=== PATIENT | male | born 1960 | race Caucasian/White ===

== ENCOUNTER → 2020-05-09 | Day surgery (SDC) | payer BC ==
[~2020-05-09] MED LIST: ANDROGEL1.25 GM TD; ATORVASTATIN CA40 MG PO; CLARITIN10 M2 PO; CYMBALTA30 MG PO; CYMBALTA60 MG PO; FORTESTA60 GM TOP; GLUCOPHAGE 500500 MG PO; GLUCOPHAGE XR500 MG PO; LISINOPRIL-HCT1 EAC2 PO; OXYCONTIN 40 MG40 MG PO; OXYCONTIN15 MG PO; PERCOCET 10-321 EACH PO; PREVACID30 MG PO; VALIUM5 MG PO; XANAX1 MG PO; XARELTO10 MG PO
[2020-05-09 11:29] LABS: BUN/CREATININE RATIO 12 (0-10)
[2020-05-09 11:45] LABS: HEMOGLOBIN 18.1 gm/dl (14.0-17.5); RED BLOOD COUNT 6.62 M/UL (4.20-5.50)
== END | disposition home or self-care (01) ==
LOC: OR 09:57
PROVIDERS: Anesthesiology Pain Medicine
DX: Z45.1 Encounter for adjustment and management of infusion pump (principal); G89.29 Other chronic pain; M54.5 Low back pain; I10 Essential (primary) hypertension; M15.0 Primary generalized (osteo)arthritis; K21.9 Gastro-esophageal reflux disease without esophagitis; F32.9 Major depressive disorder, single episode, unspecified; E11.9 Type 2 diabetes mellitus without complications; F41.9 Anxiety disorder, unspecified; F17.200 Nicotine dependence, unspecified, uncomplicated; Z98.1 Arthrodesis status; Z88.8 Allergy status to other drugs, medicaments and biological substances; Z79.899 Other long term (current) drug therapy
CPT/HCPCS: 71045; 74019; 76000; 80048; 85025; 93005; C1772; J0690; J1100; J1170; J1200; J2250; J2405; J2704; J3010; J7030; J7120

== ENCOUNTER → 2022-01-07 | Outpatient (CLI) | payer BC ==
[2022-01-07 15:09] LABS: HEMOGLOBIN 15.9 gm/dl (14.0-17.5); RED BLOOD COUNT 5.44 M/UL (4.20-5.50); WHITE BLOOD COUNT 6.6 K/UL (4.5-11.0)
[2022-01-07 15:34] LABS: BUN/CREATININE RATIO 10 (0-10)
== END ==
LOC: LAB 14:00
PROVIDERS: Internal Medicine Infectious Disease
DX: L03.311 Cellulitis of abdominal wall (principal)
CPT/HCPCS: 36415; 80053; 85025